=== PATIENT | male | born 1950 | race Caucasian/White ===

== ENCOUNTER → 2016-06-01 | Outpatient (CLI) | payer BC ==
[~2016-06-01] MED LIST: ECOTRIN81 MG PO; LISINOPRIL2.5 MG PO; METOPROLOL TART25 MG PO
== END ==
LOC: KOH-I 09:17
DX: J18.0 Bronchopneumonia, unspecified organism (principal)
CPT/HCPCS: 71020

== ENCOUNTER → 2016-07-26 | Day surgery (SDC) | payer BC | END | disposition home or self-care (01) | LOC: OR 07:53 | PROVIDERS: Internal Medicine Gastroenterology | PROC: 0DJD8ZZ Inspection of Lower Intestinal Tract, Via Natural or Artificial Opening Endoscopic (ICD-10-PCS; principal; 2016-07-26 11:45) | DX: Z12.11 Encounter for screening for malignant neoplasm of colon (principal); K62.89 Other specified diseases of anus and rectum; K64.0 First degree hemorrhoids; R19.5 Other fecal abnormalities; I10 Essential (primary) hypertension; E66.9 Obesity, unspecified; F17.200 Nicotine dependence, unspecified, uncomplicated; Z79.82 Long term (current) use of aspirin; Z79.899 Other long term (current) drug therapy; Z90.49 Acquired absence of other specified parts of digestive tract; Z95.2 Presence of prosthetic heart valve; Z98.49 Cataract extraction status, unspecified eye; Z87.01 Personal history of pneumonia (recurrent) | CPT/HCPCS: J0290; J1580; J2250; J7030; J7050 ==